=== PATIENT | male | born 1975 | race Caucasian/White ===

== ENCOUNTER 2019-07-23 11:55 | Outpatient (CLI) | payer OTHER ==
--- NOTE | 2019-07-23 13:35 | MRI Report ---
Reason: LESION OF ULNAR NERVE LT AND RT UPPER LIMBS Procedure Date: 07/23/2019 Accession Number: [id number] / [id number] Procedure: MRI - Cervical Spine W/O CPT Code: Final Report FULL RESULT: EXAM: MRI CERVICAL SPINE WITHOUT CONTRAST EXAM DATE: 07/23/2019 01:01 PM. CLINICAL HISTORY: 44-year-old male. LESION OF ULNAR NERVE LT AND RT UPPER LIMBS. COMPARISONS: None. TECHNIQUE: Multiplanar, multisequence T1-weighted and fluid-sensitive sequences of the cervical spine without contrast. Other: None. FINDINGS: Neurologic Structures: The visualized posterior fossa structures are unremarkable. No signal abnormality in the visualized spinal cord. Alignment: No scoliosis or spondylolisthesis. Bone Marrow: No gross fractures or bone lesions. No marrow edema. Interspace Levels/Facets: C1-C2: Unremarkable. C2-C3: Unremarkable. C3-C4: Unremarkable. C4-C5: Unremarkable. C5-C6: Mild diffuse disk bulge. Mild bilateral facet arthropathy. Mild anterior dural compression. No significant central canal narrowing. Mild to moderate right and mild left foraminal narrowing. C6-C7: Mild diffuse disk bulge. No significant central canal or foraminal narrowing. C7-T1: Unremarkable. Musculature: Normal. No edema or fatty atrophy. Other: The paravertebral and prevertebral soft tissues are normal. IMPRESSION: 1. No evidence of acute fracture or traumatic subluxation. No bone marrow edema. No cord signal abnormality. 2. Mild degenerative spondylosis at C5-C6 and C6-C7 levels as detailed above. Mild to moderate right and mild left foraminal narrowing at C5-C6 level. No significant central canal or foraminal narrowing at remaining cervical levels. RADIA
== END 2019-07-23 11:56 | disposition home or self-care (01) ==
LOC: DI 11:55
PROVIDERS: ATTEND Orthopaedic Surgery
DX: M47.812 Spondylosis without myelopathy or radiculopathy, cervical region (principal); M48.02 Spinal stenosis, cervical region; G56.23 Lesion of ulnar nerve, bilateral upper limbs
CPT/HCPCS: 72141

== ENCOUNTER 2019-07-25 10:51 | Emergency (ER) | payer OTHER ==
[2019-07-25 11:30] VITALS: BP 139/91
--- NOTE | 2019-07-25 12:50 | ED Physician Documentation ---
History of Present Illness - Stated complaint Stated Complaint: MED REFILL/NECK PX - Chief complaint Chief Complaint: General - History obtained from History obtained from: Patient - History of Present Illness Timing: Other (He has longstanding neck pain which is worse than normal, had an MRI last week. It is in the center of the neck and has tingling in both hands. The MRI was reviewed and he was given a copy of the read. He had mild to moderate foraminal narrowing at one level and mild foraminal narrowing at the other side at the same level. He also needs a refill of his antidepressant, [place] Review of Systems Constitutional: denies: Fever, Chills Cardiac: denies: Chest pain / pressure, Palpitations Respiratory: denies: Dyspnea, Cough PD PAST MEDICAL HISTORY - Past Medical History Respiratory: None Neuro: Other Endocrine/Autoimmune: None GI: None : None HEENT: None Psych: None Musculoskeletal: None Derm: None Other Past Medical History: PTSD - Past Surgical History Past Surgical History: Yes General: Cholecystectomy, Hiatal hernia repair Ortho: Shoulder arthroplasty, Other - Present Medications Home Medications: Ambulatory Orders Medication Instructions Recorded Confirmed Alfuzosin HCl [Alfuzosin HCl ER] 0 mg DAILY 07/25/19 07/25/19 Cyclobenzaprine [Flexeril] 10 mg PO TID PRN #20 tablet 07/25/19 Hydrocodone/Acetaminophen 1 - 2 each PO Q6H PRN #14 tablet 07/25/19 [Hydrocodon-Acetaminophen 5-325] Pantoprazole [Protonix] 40 mg DAILY 07/25/19 07/25/19 Telmisartan [Micardis] 20 mg DAILY 07/25/19 07/25/19 Venlafaxine ER [Effexor ER] 225 mg DAILY 07/25/19 07/25/19 Venlafaxine HCl [Venlafaxine HCl 225 mg PO DAILY #30 tab.er.24 07/25/19 ER] - Allergies Allergies/Adverse Reactions: Allergies Allergy/AdvReac Type Severity Reaction Status Date / Time No Known Drug Allergies Allergy Verified 07/25/19 11:30 - Social History Does the pt smoke?: No Smoking Status: Never smoker - Immunizations Immunizations are current?: Yes PD ED PE NORMAL - Vitals Vital signs reviewed: Yes - General General: Alert and oriented X 3, No acute distress - Neck Neck: Supple, no meningeal sign, Other (Tender in the mid neck, hurts with rotation especially to the right more than the left.) - Extremities Extremities: Other (Mildly weak balloon tester strength, interosseous strength, and wrist extension on the left compared with the right.) - Neuro Neuro: Alert and oriented X 3, Normal speech Results - Vitals Vitals: Vital Signs - 24 hr 07/25/19 11:25 Temperature 36.7 C Heart Rate 98 Respiratory 18 Rate Blood Pressure 139/91 H O2 Saturation 98 Oxygen O2 Source Room air PD MEDICAL DECISION MAKING - ED course ED course: 44-year-old gentleman presents with symptoms of a cervical radiculopathy despite relatively unremarkable MRI a few days ago. [place] His venlafaxine was also refilled. Departure - Departure Disposition: 01 Home, Self Care Clinical Impression: Neck pain, Medication refill Condition: Good Record reviewed to determine appropriate education?: Yes Instructions: ED Neck Pain No Trauma Prescriptions: Cyclobenzaprine [Flexeril] 10 mg PO TID PRN #20 tablet PRN Reason: Spasms Hydrocodone/Acetaminophen [Hydrocodon-Acetaminophen 5-325] 1 - 2 each PO Q6H PRN #14 tablet PRN Reason: pain Venlafaxine HCl [Venlafaxine HCl ER] 225 mg PO DAILY #30 tab.er.[email or web address] Comments: Follow-up with Dr. Carlos as scheduled for further evaluation and treatment. Return for new or worsening symptoms. Do not drink or drive while taking prescription pain medication or muscle relaxers.
== END 2019-07-25 12:55 | disposition home or self-care (01) ==
LOC: ED 10:51
DX: M54.12 Radiculopathy, cervical region (principal); Z76.0 Encounter for issue of repeat prescription
CPT/HCPCS: 99282; 99283

== ENCOUNTER 2019-09-07 08:58 | Day surgery (SDC) | payer OTHER ==
[2019-09-07] MEDS ORDERED: LACTATED RINGERS 1,000 ML IV ONE ×2 (09:00→10:42)
[2019-09-07] MEDS ORDERED: CEFAZOLIN SODIUM IN 0.9 % NACL 2 GM/100 ML BAG IV ONE (09:26)
--- NOTE | 2019-09-07 09:27 | ANESTHESIA ---
Pre-Anesthesia VS, & Labs - Diagnosis right ulnar nerve compressions - Procedure right ulnar nerve decompressions Vital Signs: Temp Pulse Resp BP Pulse Ox 36.1 C L 89 18 142/91 H 96 09/07/19 09:04 09/07/19 09:04 09/07/19 09:04 09/07/19 09:04 09/07/19 09:04 Height 6 ft 5 in Weight (kg) 115.67 kg Body Mass Index 29.6 Home Medications and Allergies Home Medications: Ambulatory Orders Fluticasone [Flonase] 1 sprays NIKKI DAILY 08/30/19 Tadalafil [Cialis] 5 mg PO 08/30/19 Alfuzosin HCl [Alfuzosin HCl ER] 0 mg DAILY 07/25/19 Pantoprazole [Protonix] 40 mg DAILY 07/25/19 Telmisartan [Micardis] 20 mg DAILY 07/25/19 Venlafaxine ER [Effexor ER] 225 mg DAILY 07/25/19 Fluticasone [Flonase] 1 sprays NIKKI DAILY 08/30/19 Tadalafil [Cialis] 5 mg PO 08/30/19 Allergies/Adverse Reactions: Allergies Allergy/AdvReac Type Severity Reaction Status Date / Time No Known Drug Allergies Allergy Verified 08/30/19 11:52 Anes History & Medical History - Anesthetic History Anesthesia Complications: reports: No previous complications, Other-see comment (reports hsitory of wakefulness during a previous surgery) Family history of Anesthesia Complications: Denies Family history of Malignant Hyperthermia: Denies - Medical History Cardiovascular: reports: Hypertension Pulmonary: reports: Sleep apnea, CPAP use Gastrointestinal: reports: GERD Urinary: reports: Benign prostate hypertrophy Neuro: reports: None, Other Musculoskeletal: reports: Other Endocrine/Autoimmune: reports: None Blood Disorders: reports: None Skin: reports: None Smoking Status: Former smoker (quite a year ago) Psychosocial: reports: No issues indicated, Depression (takes effexor), Anxiety - Surgical History General: Cholecystectomy, Hiatal hernia repair, Other Eyes Ears Nose Throat (EENT): Other Orthopedic: Shoulder arthroplasty Exam General: Alert, Oriented x3, Cooperative, No acute distress Dental: WNL Mouth Openin Fingerbreadth Neck Mobility: Normal Mallampati classification: I Thyromental Distance: 4-6 cm Respiratory: Lungs clear, Normal breath sounds, No respiratory distress, No accessory muscle use Cardiovascular: Regular rate, Normal S1, Normal S2, No murmurs Abdomen: Normal bowel sounds, Soft, No tenderness, No hepatospenomegaly, No masses Extremities: No clubbing, No cyanosis, No edema, Normal pulses, No tenderness/swelling Neurological: Normal gait, Normal speech, Strength at 5/5 X4 ext, Normal tone, Sensation intact, Cranial nerves 3-12 NL, Reflexes 2+ Mental/Cognitive Status: Alert/Oriented X3, Normal for patient Cognitive Status: Within normal limits Plan Anesthesia Type: General Consent for Procedure(s) Verified and Reviewed: Yes Code Status: Attempt Resuscitation ASA classification: 2-Mild systemic disease Is this case an emergency?: No
[2019-09-07] MEDS ORDERED: KETOROLAC 30 MG/ML VIAL IVP ONE (09:37)
[2019-09-07] MEDS ORDERED: fentaNYL 100 MCG/2 ML VIAL IVP ONE (09:37)
[2019-09-07] MEDS ORDERED: LIDOCAINE-MPF 2% 5 ML VIAL IM ONE (09:37)
[2019-09-07] MEDS ORDERED: ACETAMINOPHEN 1,000 MG/100 ML 100 ML IV ONE (09:37)
[2019-09-07] MEDS ORDERED: MIDAZOLAM 2 MG/2 ML VIAL IVP ONE (09:37)
[2019-09-07] MEDS ORDERED: PROPOFOL 200 MG/20 ML VIAL IVP ONE (09:37)
[2019-09-07] MEDS ORDERED: ONDANSETRON 4 MG/2 ML VIAL IVP ONE (09:37)
[2019-09-07] MEDS ORDERED: DEXAMETHASONE 4 MG/ML VIAL IVP ONE (09:37)
[2019-09-07] MEDS ORDERED: BUPIVACAINE 0.25% PF 30 ML VIAL ONE (09:46)
[2019-09-07] MEDS ORDERED: BUPIVACAINE 0.25% PF 30 ML VIAL SUBQ ONE ×2 (10:23)
[2019-09-07] MEDS ORDERED: LIDOCAINE 1%-EPI 1:100000 20 ML MDV ONE (11:55)
[2019-09-07] MEDS ORDERED: LIDOCAINE 1%-EPI 1:100000 20 ML MDV SUBQ ONE (12:12)
[2019-09-07] MEDS ORDERED: oxyCODONE 5 MG TABLET PO PRN (12:47)
[2019-09-07] MEDS ORDERED: ONDANSETRON 4 MG/2 ML VIAL IVP PRN (12:47)
--- NOTE | 2019-09-07 13:03 | OPERATIVE REPORT ---
Operative Report - General Procedure Date: 09/07/19 - Procedure Note Estimated Blood Loss (mL): 25 - Other Other Information/Narrative: Date of Procedure: 07 September 2019 Planned Procedure: Right ulnar nerve in situ decompression, possible transposition Pre-op diagnosis: Right cubital tunnel syndrome Procedure performed: Right ulnar nerve in situ decompression Post-op diagnosis: Right cubital tunnel syndrome Primary Surgeon: JANUARY LAY Secondary Surgeon: Anesthesia: General EBL: 25 ml Tourniquet: 73 minutes, right arm at 250mmHg. Specimen(s) Information: None Complication(s): None Condition: Stable to recovery Indications for Surgery: The patient is a 44-year-old right hand dominant male with a multiple year history of right greater than left elbow pain and numbness and tingling in the ulnar digits. Exam demonstrated no instability/subluxation of the ulnar nerve. They had a positive Tinel and positive flexion compression test. EMG/NCS was consistent with bilateral ulnar neuropathy at the elbow. The patient was counseled on treatment options to include continued nonoperative treatment in the form of activity modification, splinting versus surgical release of the ulnar nerve. We also discussed intraoperative evaluation of the stability of the nerve and the possible need for anterior subcutaneous transposition. Risks of surgery were discussed to include bleeding, infection, postoperative elbow st iffness, failure to relieve symptoms, damage to nerves, vessels, tendons, ligaments, bone and cartilage and anesthesia complications to include medication side effects and allergic reactions and even . After a long discussion, they wished to proceed. Findings: Ulnar nerve with multiple layers of thickened overlying fascia the distal. The proximal extent of the forearm fascia was thickened and extremely restrictive. The ulnar nerve was released in situ, with the dissection carried proximally into the arm and distally into the FCU muscle belly. Following release, the course of the ulnar nerve was inspected both visually and with digital palpation for any points of compression or kinking. The nerve was found to glide appropriately with elbow flexion and extension without any perching or snapping. Descriptions of Procedure: The patient was met in the Preoperative Holding Area, at which time preoperative paperwork was confirmed. The right elbow was signed. The patient was then b rought to Main Operating Room, placed supine on the Operating Room table, at which time pre procedure timeout was conducted to confirm correct patient, correct extremity and correct procedure and also to confirm presence and sterility of all required equipment and to confirm that antibiotics were being administered in the form of 2g of intravenous Ancef. After this was confirmed, general anesthesia was induced. The operative extremity was then prepped and draped over a hand table in the normal sterile fashion. A sterile well-padded tourniquet was placed on the proximal arm. A final timeout was conducted to confirm the correct patient, correct extremity and correct procedure and to confirm that antibiotics had been administered within 30 minutes of incision time. The operative extremity was then exsanguinated with an Esmarch bandage and tourniquet inflated to 250mmHg. An approximately 6 cm longitudinal incision was made centered posterior to the tip of the medial epicondyle in line with the course of the ulnar nerve. The skin and dermis were sharply incised, followed by blunt dissection with tenotomy scissors through through through the subcutaneous fat. Care was taken to identify any crossing branches of the medial cutaneous nerves. Three of these branches were identified they were dissected free and protected with vessel loops. The incision was carried deep, and Morales's ligament overlying the cubital tunnel was sharply incised, near the insertion on the olecranon revealing the ulnar nerve. The cubital tunnel was then released, and the dissection proceeded proximally and distally. Dissection was taken distally into the forearm and the muscle bellies of the FCU. Approximately 3 cm of the overlying FCU fascia was released. Following release of the FCU fascia, digital palpation confirmed no compressive points or excessive pressure on the ulnar nerve well into the FCU muscle belly. Proximally, and [place] retractor was used to improve visualization, and the proximal extent of the nerve was released from the overlying connective tissue under direct visualization. A [place] was passed confirming no tethering points proximally. The instruments were removed from the incision, the Vesseloops were removed, and the arm was taken through full range of flexion and extension. The ulnar nerve had good gliding and excursion, without any perching or snapping at the medial epicondyle. The wound was then irrigated, and the tourniquet was let down. Manual pressure was held for 5 minutes, after which point bipolar bipolar cautery was used to coagulate any bleeding points. The wound was again irrigated and the subcutaneous tissue was closed using 2-0 and 3-0 Vicryl in interrupted fashion, followed by a running subcuticular 4-0 Monocryl. Mastisol and Steri-Strips were placed, and the jose-incisional tissues were injected with 50 mL of local anesthetic consisting of a mixture of 30 mL of quarter percent Marcaine plain and 20 mL of 1% lidocaine with epinephrine. The wound was dressed with Xeroform, plain 4x4 gauze, followed by webril, pound cotton, and a compressive Miguel wrap for a soft Gaines type splint. The patient was then awakened from general anesthesia without complication, brought to the Post Anesthesia Care for further recovery. Post-operative the patient was able to abduct his fingers agains rersistance Postoperative Plan: 1. The patient will be discharged from the Same Day Surgery Unit when discharge criteria are met. 2. The patient will remain in a compressive soft dressing until follow-up, this will be removed in clinic. 3. Patient can start gentle elbow range of motion on postoperative day 1-2 as his pain allows, to facilitate nerve gliding. 4. Expect return to full duty in 12 weeks.
[2019-09-07] MEDS ORDERED: oxyCODONE 5 MG TABLET ONE (13:19)
[2019-09-07 13:22] VITALS: BP 139/89
== END 2019-09-07 08:59 | disposition home or self-care (01) ==
LOC: SDS 08:58
PROVIDERS: ATTEND Orthopaedic Surgery
PROC: 01N40ZZ Release Ulnar Nerve, Open Approach (ICD-10-PCS; principal; 2019-09-07 10:00)
DX: G56.21 Lesion of ulnar nerve, right upper limb (principal); I10 Essential (primary) hypertension; G47.33 Obstructive sleep apnea (adult) (pediatric); Z87.891 Personal history of nicotine dependence; F32.9 Major depressive disorder, single episode, unspecified; F41.9 Anxiety disorder, unspecified

== ENCOUNTER 2020-01-04 07:26 | Day surgery (SDC) | payer OTHER ==
[~2020-01-04 07:26] MED LIST: CEFAZOLIN SODIUM IN 0.9 % NACL 2 GM/100 ML BAG IV ONE
[2020-01-04] MEDS ORDERED: LACTATED RINGERS 1,000 ML IV ONE ×2 (07:36→11:31)
[2020-01-04] MEDS ORDERED: LIDOCAINE-MPF 1% 30 ML VIAL ONE (07:50)
[2020-01-04] MEDS ORDERED: BUPIVACAINE 0.25% PF 30 ML VIAL ONE (07:50)
[2020-01-04] MEDS ORDERED: MIDAZOLAM 2 MG/2 ML VIAL IVP ONE (08:05)
--- NOTE | 2020-01-04 08:07 | ANESTHESIA ---
Pre-Anesthesia VS, & Labs - Diagnosis left cubital tunnel syndrome - Procedure left cubital tunnel release Vital Signs: Temp Pulse Resp BP Pulse Ox 36.9 C 77 12 168/86 H 97 01/04/20 07:36 01/04/20 07:36 01/04/20 07:36 01/04/20 07:36 01/04/20 07:36 Height 6 ft 5 in Weight (kg) 120.6 kg Body Mass Index 29.6 - NPO >8 hours - Lab Results Lab results reviewed: Yes Home Medications and Allergies Alfuzosin HCl [Alfuzosin HCl ER] 0 mg DAILY 07/25/19 Pantoprazole [Protonix] 40 mg DAILY 07/25/19 Telmisartan [Micardis] 20 mg DAILY 07/25/19 Fluticasone [Flonase] 1 sprays NIKKI DAILY 08/30/19 Tadalafil [Cialis] 5 mg PO 08/30/19 Allergies/Adverse Reactions: Allergies Allergy/AdvReac Type Severity Reaction Status Date / Time No Known Drug Allergies Allergy Verified 12/31/19 10:29 Anes History & Medical History - Anesthetic History Anesthesia Complications: reports: No previous complications Family history of Anesthesia Complications: Denies Family history of Malignant Hyperthermia: Denies - Medical History Cardiovascular: reports: Hypertension Pulmonary: reports: Sleep apnea, CPAP use Gastrointestinal: reports: GERD Urinary: reports: Benign prostate hypertrophy Neuro: reports: None, Other Musculoskeletal: reports: Other Endocrine/Autoimmune: reports: None, Other (obesity) Blood Disorders: reports: None Skin: reports: None Smoking Status: Former smoker (quite a year ago) Psychosocial: reports: Anxiety - Surgical History General: Cholecystectomy, Other Eyes Ears Nose Throat (EENT): Other Orthopedic: Shoulder arthroplasty, Other Exam General: Alert, Oriented x3, Cooperative Dental: WNL Mouth Opening: Greater than 4 Fingerbreadths Neck Mobility: Normal Mallampati classification: I Thyromental Distance: 4-6 cm Respiratory: Lungs clear Cardiovascular: Regular rate Plan Anesthesia Type: General Consent for Procedure(s) Verified and Reviewed: Yes Code Status: Attempt Resuscitation ASA classification: 2-Mild systemic disease Is this case an emergency?: No
[2020-01-04] MEDS ORDERED: BUPIVACAINE 0.25% PF 30 ML VIAL SUBQ ONE (09:41)
[2020-01-04] MEDS ORDERED: ONDANSETRON 4 MG/2 ML VIAL IVP PRN (11:29)
[2020-01-04] MEDS ORDERED: oxyCODONE 5 MG TABLET PO PRN (11:29)
[2020-01-04] MEDS ORDERED: oxyCODONE 5 MG TABLET ONE (11:55)
[2020-01-04 12:03] VITALS: BP 144/95
--- NOTE | 2020-01-09 09:37 | OPERATIVE REPORT ---
Operative Report - General Procedure Date: 01/04/20 - Procedure Note Anesthesia Technique: General LMA Pathology: None Estimated Blood Loss (mL): 60 - Other Other Information/Narrative: Planned Procedure: Left ulnar nerve in situ decompression, possible transposition Pre-op diagnosis: Left cubital tunnel syndrome Procedure performed:Left ulnar nerve in situ decompression Post-op diagnosis: Left cubital tunnel syndrome Primary Surgeon: JANUARY LAY Secondary Surgeon: Jay Anesthesia: General EBL: 60 ml Tourniquet: 70 minutes, left arm at 250mmHg. Specimen(s) Information: None Complication(s): None Condition: Stable to recovery Indications for Surgery: The patient is a 44-year-old right hand dominant male with a multiple year history of bilateral elbow pain and numbness and tingling in the ulnar digits. He underwent an in situ decompression of the right cubital tunnel in late Aug 2019, with good improvement in symptoms and desired to pursue treatment on the left. He had recently noticed hypothenar and 1st dorsal interoseous muscle wasting on the left with decreased animal herder strength. Exam demonstrated no instability/subluxation of the ulnar nerve. They had a positive Tinel and positive flexion compression test. Prior EMG/NCS was consistent with bilateral ulnar neuropathy at the elbow. The patient was counseled on treatment options to include continued nonoperative treatment in the form of activity modification, splinting versus surgical release of the ulnar nerve. We also discussed intraoperative evaluation of the stability of the nerve and the possible need for anterior subcutaneous transposition. Risks of surgery were discussed to include bleeding, infection, postoperative elbow stiffness, failure to relieve symptoms, damage to nerves, vessels, tendons, ligaments, bone and cartilage and anesthesia complications to include medication side effects and allergic reactions and even . After discussion, they wished to proceed. Findings: Ulnar nerve with multiple layers of thickened overlying fascia just proximal to the medial epicondyle. The ulnar nerve was enlarged and enveloped in multiple layers of dense connective tissue. Similar to the right arm (although not as tight, the proximal extent of the forearm fascia was thickened and restrictive. The ulnar nerve was released in situ, with the dissection carried proximally into the arm (a small proximal counter-incision was made to release a dense struthers band) and distally into the FCU muscle belly for approximately 3 cm. Following release, the course of the ulnar nerve was inspected both visually and with digital palpation for any points of compression or kinking. The nerve was found to glide appropriately with elbow flexion and extension without any perching or snapping. Descriptions of Procedure: The patient was met in the Preoperative Holding Area, at which time preoperative paperwork was confirmed. The left elbow was signed. The patient was then brought to Main Operating Room, placed supine on the Operating Room table and general anesthesia was induced. The operative extremity was then prepped and draped over a hand table in the normal sterile fashion. A sterile well-padded tourniquet was placed on the proximal arm. A surgical timeout was conducted to confirm the correct patient, correct extremity and correct procedure and to confirm that antibiotics had been administered within 30 minutes of incision time. The operative extremity was then exsanguinated with an Esmarch bandage and tourniquet inflated to 250mmHg. An approximately 8 cm longitudinal incision was made centered posterior to the tip of the medial epicondyle in line with the course of the ulnar nerve. The skin and dermis were sharply incised, followed by blunt dissection with tenotomy scissors through through through the subcutaneous fat to the level of the fascia. Care was taken to identify any crossing branches of the medial cutaneous nerves. Two branches were identified crossing the in cision and were dissected free and protected with vessel loops. Small crossing vessels were coagulated with bipolar electrocautery. The incision was carried deep, and Morales's ligament overlying the cubital tunnel was sharply incised, near the insertion on the olecranon revealing the ulnar nerve. The cubital tunnel was then released, and the dissection proceeded proximally and distally. Adherent tissue constricting the nerve was carefully released, with immediate rebound of the size of the nerve. Dissection was taken distally into the forearm and the muscle bellies of the FCU. Approximately 3 cm of the overlying FCU fascia was released. Following release of the FCU fascia, digital palpation confirmed no compressive points or excessive pressure on the ulnar nerve well into the FCU muscle belly. Proximally, an [employer] retractor was used to improve visualization, and the proximal extent of the nerve was released from the overlying connective tissue under direct visualization. A [place] was passed, and a tight fascial band, consistent with a struthers band was encountered approximately 8-9cm proximal to the medial epicondyle. A small 1.5 cm counterincision was made, and the fascial layer was dissected to bluntly, and the fascial band was released under direct visualization. Following this, digital palpation was used to confirm that there were no additional tight or tethering points proximally. The instruments were removed from the incision, the Vesseloops were removed, and the arm was taken through full range of flexion and extension. The ulnar nerve had good gliding and excursion, without any perching or snapping at the medial epicondyle. The wound was then irrigated, and the tourniquet was let down. Manual pressure was held for 5 minutes, after which point bipolar bipolar cautery was used to coagulate any bleeding points. The wound was again irrigated and the subcutaneous tissue was closed using 2-0 Vicryl in interrupted fashion, followed by a running subcuticular 4-0 Monocryl. Mastisol and Steri-Strips were placed, and the periincisional tissues were injected with 30 mL of quarter percent Marcaine plain. The wound was dressed with Xeroform, plain 4x4 gauze, followed by webril, pound cotton, a gently compressive webril and an Miguel wrap for a soft Gaines type splint. The patient was then awakened from general anesthesia without complication, brought to the Post Anesthesia Care for further recovery. Post- operatively the patient was able to abduct his fingers against resistance, and could cross the long and index fingers. Postoperative Plan: 1. The patient will be discharged from the Same Day Surgery Unit when discharge criteria are met. 2. The patient will remain in a compressive soft dressing until follow-up, this will be removed in clinic next week and will be replaced with a compressive arm sleeve. 3. Patient can start gentle elbow range of motion on postoperative day 1-2 as his pain allows, to facilitate nerve gliding. 4. Expect return to full duty in 12 weeks. 5. Early ambulation for DVT prophylaxis
== END 2020-01-04 07:27 | disposition home or self-care (01) ==
LOC: SDS 07:26
PROVIDERS: ATTEND Orthopaedic Surgery
DX: G56.22 Lesion of ulnar nerve, left upper limb (principal); I10 Essential (primary) hypertension; G47.33 Obstructive sleep apnea (adult) (pediatric); Z87.891 Personal history of nicotine dependence

== ENCOUNTER 2020-05-07 12:21 | Outpatient (CLI) | payer OTHER ==
[2020-05-07] MEDS ORDERED: BUFFERED LIDOCAINE 10 ML SYRINGE ONE ×2 (12:34)
[2020-05-07] MEDS ORDERED: GADOBUTROL 7.5 MMOL/7.5 ML VIAL ONE (12:35)
[2020-05-07] MEDS: BUFFERED LIDOCAINE 10 ML SYRINGE IU ONE (13:42)
[2020-05-07] MEDS: iohexoL-240 10 ML VIAL IVP ONE (13:44)
[2020-05-07] MEDS: GADOBUTROL 7.5 MMOL/7.5 ML VIAL IVP ONE (13:45)
--- NOTE | 2020-05-07 14:22 | XRAY Report ---
PROCEDURE: Arthrogram Needle Placement INDICATIONS: RT SHOULDER PAIN TECHNIQUE: Utilizing sterile technique and fluoroscopic guidance a 22-gauge 1 1/2 inch needle was adv anced during injection of local anesthesia into the anterior shoulder joint space. Through this pathw ay positioning of the needle tip was confirmed to be within the articular interspace, and positioning was confirmed by injection of a small amount of nonionic iodinated contrast. Thereafter a dilute rip olinium/saline solution was felt for MR arthrography. COMPARISON: None. FINDINGS: Successful intra-articular injection of a dilute gadolinium/saline solution. IMPRESSION: Intra-articular contrast infusion for MR arthrography. Reviewed by: Ronald Palencia MD on 05/07/2020 2:20 PM PDT Approved by: Ronald Palencia MD on 05/07/2020 2:20 PM PDT Station ID: [id number]
--- NOTE | 2020-05-07 16:25 | MRI Report ---
PROCEDURE: Arthrogram Shoulder RT INDICATIONS: RT SHOULDER PAIN CONTRAST: Dilute intra-articular gadolinium contrast solution TECHNIQUE: After the administration of 12 mL of dilute intra-articular Gadolinium contrast, oblique coronal T1 a nd T2 spin echo with fat saturation, oblique sagittal T1 spin echo with and without fat saturation, o blique sagittal T2 fast spin echo with fat saturation, axial T1 spin echo with fat saturation through the shoulder. COMPARISON: Fluoroscopic images from arthrogram injection performed earlier the same day. FINDINGS: Image quality: Diagnostic. Rotator cuff: There is mild supraspinatus tendinosis. Infraspinatus and teres minor tendons are inta ct. The subscapularis tendon demonstrates mild tendinosis. Bones and bursae: No acute bone marrow contusions or fractures. Chronic traction cystic changes are seen at the posterosuperior humeral head. Mild degenerative changes are seen at the acromioclavic ular joint. No pathologic subacromial/subdeltoid bursal fluid is present. Capsule and soft tissues: A lobulated cyst is seen at the anterosuperior aspect of the labrum measur ing approximately 2.5 x 2.0 x 2.1 cm that does not fill with intra-articular contrast material and mo st likely represents a paralabral cyst. There is a nondisplaced tear of the superior labrum extending into the anterosuperior labrum. Mild degeneration is seen in the inferior labrum. The long head of the biceps tendon demonstrates normal location and morphology. The inferior glenohumeral ligament is normal in thickness. IMPRESSION: 1. Nondisplaced tearing of the superior to anterosuperior labrum with a 2.5 cm paralabral cyst exten ding into the superior subscapularis recess, which does not fill with intra-articular contrast materi al. 2. Mild supraspinatus and subscapularis tendinosis. No significant rotator cuff tendon tear is seen. 3. Mild acromioclavicular joint osteoarthrosis. Reviewed by: Darci Zazueta MD on 05/07/2020 4:23 PM PDT Approved by: Darci Zazueta MD on 05/07/2020 4:23 PM PDT Station ID: [id number]
== END 2020-05-07 12:22 | disposition home or self-care (01) ==
LOC: DI 12:21
PROVIDERS: ATTEND General Practice
DX: M25.811 Other specified joint disorders, right shoulder (principal); S43.431A Superior glenoid labrum lesion of right shoulder, initial encounter; M75.91 Shoulder lesion, unspecified, right shoulder; M19.011 Primary osteoarthritis, right shoulder
CPT/HCPCS: 23350; 73222; 77002; A9585; Q9966

== ENCOUNTER 2020-08-01 08:38 | Day surgery (SDC) | payer OTHER ==
--- NOTE | 2020-08-01 08:31 | ANESTHESIA ---
Pre-Anesthesia VS, & Labs Height: 6 ft 5 in Weight (kg): 115 kg Body Mass Index: 30.0 BMI Classification: Obese <Katarzyna Sharp - Last Filed: 08/01/20 08:27> - NPO >8 hours - Lab Results Lab results reviewed: Yes <Mayito Canseco - Last Filed: 08/01/20 09:39> - Diagnosis right shoulder impingement, labral tear (Katarzyna Sharp) - Procedure right shoulder arthroscopy (Katarzyna Sharp) Vital Signs: Temp Pulse Resp BP Pulse Ox 36.7 C 80 14 141/87 H 96 08/01/20 08:44 08/01/20 08:44 08/01/20 08:44 08/01/20 08:44 08/01/20 08:44 Home Medications and Allergies <Katarzyna Sharp - Last Filed: 08/01/20 08:27> <Mayito Canseco - Last Filed: 08/01/20 09:39> Alfuzosin HCl [Alfuzosin HCl ER] 0 mg PO DAILY 07/25/19 Pantoprazole [Protonix] 40 mg DAILY 07/25/19 Telmisartan [Micardis] 20 mg PO DAILY 07/25/19 Fluticasone [Flonase] 1 sprays NIKKI DAILY 08/30/19 Tadalafil [Cialis] 5 mg PO DAILY 08/30/19 Allergies/Adverse Reactions: Allergies Allergy/AdvReac Type Severity Reaction Status Date / Time No Known Drug Allergies Allergy Verified 07/29/20 09:26 Anes History & Medical History - Medical History Cardiovascular: reports: Hypertension Pulmonary: reports: Sleep apnea, CPAP use Gastrointestinal: reports: GERD Urinary: reports: Benign prostate hypertrophy Neuro: reports: None, Other Musculoskeletal: reports: Other Endocrine/Autoimmune: reports: None Blood Disorders: reports: None Skin: reports: None Smoking Status: Former smoker (quite a year ago) - Surgical History General: Cholecystectomy Eyes Ears Nose Throat (EENT): Other Orthopedic: Shoulder arthroplasty <Katarzyna Sharp - Last Filed: 08/01/20 08:27> - Anesthetic History Anesthesia Complications: reports: No previous complications Family history of Anesthesia Complications: Denies Family history of Malignant Hyperthermia: Denies - Medical History Cardiovascular: reports: Hypertension Pulmonary: reports: Sleep apnea, CPAP use Gastrointestinal: reports: GERD Urinary: reports: Benign prostate hypertrophy Neuro: reports: None Endocrine/Autoimmune: reports: None Smoking Status: Former smoker <Mayito Canseco Last Filed: 08/01/20 09:39> Exam General: Alert, Oriented x3, Cooperative, No acute distress Dental: WNL Mouth Openin Fingerbreadth Neck Mobility: Normal Mallampati classification: II Respiratory: Lungs clear, Normal breath sounds, No respiratory distress, No accessory muscle use Cardiovascular: Regular rate, Normal S1, Normal S2, No murmurs <Mayito Canseco Filed: 08/01/20 09:39> Plan Anesthesia Type: General, Interscalene Block Regional Block: Per Surgeon's request for Post Op pain control Consent for Procedure(s) Verified and Reviewed: Yes Code Status: Attempt Resuscitation ASA classification: 2-Mild systemic disease Is this case an emergency?: No <Mayito Canseco Filed: 08/01/20 09:39>
[~2020-08-01 08:38] MED LIST changes: +BUPIVACAINE 0.25% PF 30 ML VIAL ONE; -CEFAZOLIN SODIUM IN 0.9 % NACL 2 GM/100 ML BAG IV ONE; +DEXAMETHASONE 4 MG/ML VIAL ONE; +KETOROLAC 30 MG/ML VIAL ONE; +LIDOCAINE-MPF 2% 5 ML VIAL ONE; +ONDANSETRON 4 MG/2 ML VIAL ONE; +PROPOFOL 200 MG/20 ML VIAL IVP ONE; +ROCURONIUM 50 MG/5 ML VIAL ONE; +ROPIVACAINE 0.5% PF 20 ML AMPULE ONE; +cefTRIAXone 2 GM VIAL ONE
[2020-08-01] MEDS ORDERED: LACTATED RINGERS 1,000 ML IV ONE ×2 (09:09→13:53)
[2020-08-01] MEDS ORDERED: MIDAZOLAM 2 MG/2 ML VIAL ONE (09:11)
[2020-08-01] MEDS ORDERED: fentaNYL 100 MCG/2 ML VIAL ONE ×2 (09:11→09:12)
[2020-08-01] MEDS ORDERED: LIDOCAINE-PF 2% 10 ML AMP SUBQ ONE (09:14)
[2020-08-01] MEDS ORDERED: EPINEPHrine 1 MG/ML AMP ONE (09:28)
[2020-08-01] MEDS ORDERED: BUPIVACAINE 0.25% PF 30 ML VIAL ONE (09:29)
[2020-08-01] MEDS ORDERED: NALOXONE 0.4 MG/ML VIAL IVP PRN (09:39)
[2020-08-01] MEDS ORDERED: MORPHINE 2 MG/ML CARPUJECT IVP PRN (09:39)
[2020-08-01] MEDS ORDERED: ONDANSETRON 4 MG/2 ML VIAL IVP PRN ×2 (09:39→13:49)
[2020-08-01] MEDS ORDERED: ATROPINE ABBOJECT 1 MG/10 ML SYRINGE IVP PRN (09:39)
[2020-08-01] MEDS ORDERED: ePHEDrine 50 MG/ML VIAL IVP PRN (09:39)
[2020-08-01] MEDS ORDERED: fentaNYL 100 MCG/2 ML VIAL IVP PRN (09:39)
[2020-08-01] MEDS ORDERED: METOCLOPRAMIDE 10 MG/2 ML VIAL IVP PRN (09:39)
[2020-08-01] MEDS ORDERED: LACTATED RINGERS 1,000 ML IV SCH (10:00)
[2020-08-01] MEDS ORDERED: BUPIVACAINE 0.25% PF 30 ML VIAL SUBQ ONE ×2 (11:13)
[2020-08-01] MEDS ORDERED: EPINEPHrine 1 MG/ML AMP IR ONE (11:14)
[2020-08-01] MEDS ORDERED: SEVOFLURANE 250 ML LIQUID INH ONE (12:48)
[2020-08-01] MEDS ORDERED: oxyCODONE 5 MG TABLET PO PRN (13:49)
[2020-08-01] MEDS ORDERED: LABETALOL 20 MG/4 ML SYRINGE IVP PRN (13:59)
[2020-08-01] MEDS: LABETALOL 20 MG/4 ML SYRINGE IVP PRN ×3 (14:00→14:45)
[2020-08-01] MEDS ORDERED: LABETALOL 20 MG/4 ML SYRINGE IVP ONE (14:05)
--- NOTE | 2020-08-01 14:22 | OPERATIVE REPORT ---
Operative Report - General Procedure Date: 08/01/20 - Procedure Note Anesthesia Technique: General ET tube, Regional block Estimated Blood Loss (mL): 20 - Other Other Information/Narrative: Date of Procedure: 01 August 2020 Planned Procedure: Right shoulder arthroscopy, labral repair, biceps tenodesis, subacromial decompression Pre-op diagnosis: Right shoulder instability, SLAP tear, impingement, anterior paralabral cyst Procedure performed: Right shoulder arthroscopy, posterior inferior labral repair and capsulorrhaphy, SLAP debridement, paralabral cyst decompression, subacromial decompression, mini-open sub pectoral biceps tenodesis Post-op diagnosis: Right shoulder posterior inferior labral tear, SLAP tear, subacromial bursitis, anterior paralabral cyst Primary Surgeon: JANUARY LAY Secondary Surgeon: Jay Anesthesia: General endotracheal anesthesia with regional block EBL: 20 ml IMPLANTS: Arthrex 3 mm knotless suture tack x3 for the labral repair Arthrex 1.8 mm fiber tack x1 for the biceps tenodesis POSTOPERATIVE PLAN: 0-2 weeks-Sling at all times. Pendulum exercises 5 times per day. 2-6 weeks-Passive range of motion with the following limits: FF to 120, ER to 40, abduction to 90 6-12 weeks-Active range of motion in all planes without limitation. Isometric rotator cuff strengthening is allowed. Okay to start light band work with the biceps at 6 weeks and formal strengthening at 8 weeks. 12-16 weeks-Gradually increase strengthening 16 weeks and beyond-Introduce dynamic activities EXAMINATION UNDER ANESTHESIA: ROM: Forward flexion 180 degrees, abduction 175 degrees, ABER 90 degrees, ABIR 90 degrees Anterior load and shift: Normal Posterior load and shift: 2+ Inferior sulcus: Negative ARTHROSCOPIC FINDINGS: Rotator interval: Mild rotator interval fraying Biceps tendon & SLAP: The biceps tendon overall appeared normal, there was a large unstable type II SLAP tear, with instability of the biceps insertion and superior labrum. This was treated with biceps tenodesis and labral debridement. Subscapularis: Intact. There was a large paralabral cyst in the subscapular recess. This was approached and punctured with a spinal needle, and then decompressed by inserting a Raven and dilating the orifice created with release of yellow appearing cystic fluid Rotator Cuff: Intact, no undersurface fraying, superior surface stable to probing following subacromial decompression HAGL: No HAG L or reverse HAG L appreciated Labrum: Large type II SLAP tear superiorly, with an anterior sublabral foramen, the anterior-inferior labrum was stable to probing, the posterior inferior labrum had at the chondral labral junction from approximately 6:00 to 9:00. The posterior superior labrum was intact from approximately 9:00 to 10:30. Glenoid Cartilage: There was a small posterior inferior section of glenoid cartilage that was cracked and unstable. This was debrided with the arthroscopic sucker shaver as part of the labral and glenoid prep. 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 Nonoperative managment failed to resolve symptoms. The risks, benefits, and alternatives were discussed. Risks included pain, bleeding, infection, damage to nearby structures, lack of symptom relief, implant complications, stiffness, need for further surgeries, DVT, PE, stroke, and even . He signed a written consent form. PROCEDURE IN DETAIL: The patient was met in the preoperative holding on the day of the procedure. Operative extremity was signed. Consent was verified. He desired to proceed. Regional anesthesia was obtained in the preoperative area. They were brought to the operating room and surrendered to anesthesia. Once general anesthesia was obtained they were placed in the lateral decubitus position with the operative side up. An axillary roll was placed and all bony prominences were well-padded. They were then prepped and draped in the standard sterile fashion. A surgical timeout was held to confirm the patient procedure, identity, procedure, laterality, allergies, images, and antibiotics. All were in agreement we proceeded. Balanced suspension was applied and a standard diagnostic arthroscopy was performed utilizing posterior and anterior superior portal sites. The anterior superior portal site was created under direct visualization. The findings of the diagnostic arthroscopy can be found above. A biceps tenotomy was performed, and the superior labrum and associated para labral tissues were debrided with a combination of the arthroscopic sucker shaver, meniscal biters and radiofrequency ablation wand. An anterior mid glenoid portal just above the subscapularis was established under direct visualization. The camera was then shifted to the anterior superior portal and the posterior labrum was visualized. Probing demonstrated the posterior inferior labral tear as described above. The posterior inferior labrum was prepared using a combination of high and low angled elevators, the arthroscopic sucker shaver and the pineapple rasp. The extent of the labral tear was from approximately 6:00 inferiorly to just before 9:00 posteriorly. The labrum was systematically freed up until it had good mobility. The arthroscopic sucker shaver was used to debride the cracked chondral margin to make room for anchor placement. The pineapple rasp was used to debride any remaining soft tissue off the glenoid neck. A posterior percutaneous portal was established using the Arthrex system, and anchors were sequentially placed from approximately 6:00 inferior and then moving posteriorly and superiorly. The first anchor was placed, and the appropriate suture lasso was used to pass the suture around the capsule and labral tissue. The anchor was then secured in knotless fashion. This was repeated using the percutaneous portal for the 6:00 anchor. These anchors resulted in a gentle capsulorrhaphy and good repair of the posterior inferior labral tear. The camera was then moved to the mid glenoid portal and the subscapular recess was interrogated. A paralabral cyst was identified, and the spinal needle from the percutaneous kit was brought through the anterior superior portal into the cyst, with release of yellowish colored fluid, creating an orifice. The spinal needle was then removed and a Raven grasper was placed through the portal and used to enter the cyst once in the cyst the jaws were opened and the orifice was dilated resulting in release of copious yellow cystic fluid into the joint, adequately decompressing the cyst. Lateral suspension was released on the shoulder, and final intra-articular arthroscopic pictures were taken with good centering of the humeral head on the glenoid. The instruments and cannula were then removed from the glenohumeral joint. The scope trocar was placed in the posterior portal and the acromion was felt. It was then inserted just under the acromion scraping along the bone until the CA ligament was felt. The scope trocar was then brought just lateral to the CA ligament and out the anterior superior incision. The cannula was then brought over the scope trocar arthroscope were inserted. The arthroscope was backed up until the shaver and arthroscope in the subacromial space. I then systemically debrided the bursa using a sucker shaver and radiofrequency ablation wand. Care was taken to keep the deltoid fascia intact. The rotator cuff was then evaluated, there was no tear. Final images were taken. We then turned our attention to the biceps tenodesis, a 5 cm incision was made near the axillary fold centered over the pectoralis major tendon. Electrocautery was used to obtain hemostasis. The fascia was opened with dissection scissors. Blunt digital dissection was used to identify the intertubercular groove just under the pectoralis major tendon. The long head of the biceps tendon was palpated within this interval, finger dissected and then delivered out of the wound. A salter elevator was used to debride any soft tissue from the intertubercular groove, and then a fiber tack anchor was placed in standard fashion. After ensuring good sliding of the suture, the biceps tendon was then whipstitched using a single limb of the of the anchor suture from 2 cm proximal to the musculotendinous junction down to the musculotendinous junction and back up to the starting point. The free limb from the anchor was then passed from deep to superficial through the tendon. Excess tendon was cut off. Tension was pulled on the post suture, reducing the tendon nicely into the wound and to the surface of the humerus. Tension was maintained on the post, and the tendon was palpated while the elbow was taken through range of motion to ensure appropriate tension. Satisfied with the tension, the sutures were tied using reversing half hitches on and an alternating post. Following fixation there was appropriate tension on the biceps tendon. The suture limbs were cut and the wound was irrigated. The subcutaneous tissue was closed using interrupted 2-0 Vicryl followed by running 3-0 Monocryl in subcuticular fashion. The portal sites were then closed with 3-0 Monocryl. Mastisol and Steri-Strips were applied. 10 mL of quarter percent Marcaine was injected around the biceps tenodesis incision. Xeroform was applied followed by a sterile dressing and a sling. He was awakened and transferred to the recovery room.
[2020-08-01] MEDS: HYDROmorphone 0.5 MG/0.5 ML SYRINGE IVP PRN ×2 (14:26→14:31)
[2020-08-01] MEDS ORDERED: HYDROmorphone 1 MG/ML CARPUJECT ONE (14:35)
[2020-08-01] MEDS ORDERED: oxyCODONE 5 MG TABLET ONE (15:26)
[2020-08-01 15:29] VITALS: BP 134/80
--- NOTE | 2020-08-01 16:59 | ANESTHESIA POST OP EVALUATION ---
Anesthesia Post Eval - Post Anesthesia Eval Vitals: Last Vital Signs Temp 36.4 C L 08/01/20 15:26 Pulse 80 08/01/20 15:26 Resp 12 08/01/20 15:26 BP 134/80 H 08/01/20 15:26 Pulse Ox 95 08/01/20 15:26 CV Function Including HR & BP: positive: Stable Pain Control: positive: Satisfactory Nausea & Vomiting: positive: Negative Mental Status: positive: Patient Participates Respiratory Status: Airway Patent Hydration Status: Satisfactory
== END 2020-08-01 08:39 | disposition home or self-care (01) ==
LOC: SDS 08:38
PROVIDERS: ATTEND Orthopaedic Surgery
PROC: 0RBJ4ZZ Excision of Right Shoulder Joint, Percutaneous Endoscopic Approach (ICD-10-PCS; 2020-08-01)
PROC: 0LS30ZZ Reposition Right Upper Arm Tendon, Open Approach (ICD-10-PCS; 2020-08-01)
PROC: 0RQJ4ZZ Repair Right Shoulder Joint, Percutaneous Endoscopic Approach (ICD-10-PCS; principal; 2020-08-01 09:45)
DX: S43.491A Other sprain of right shoulder joint, initial encounter (principal); S46.111A Strain of muscle, fascia and tendon of long head of biceps, right arm, initial encounter; S43.431A Superior glenoid labrum lesion of right shoulder, initial encounter; M75.51 Bursitis of right shoulder; M25.811 Other specified joint disorders, right shoulder; G47.30 Sleep apnea, unspecified; K21.9 Gastro-esophageal reflux disease without esophagitis; E66.9 Obesity, unspecified; Z68.30 Body mass index [BMI] 30.0-30.9, adult; Z87.891 Personal history of nicotine dependence; X50.0XXA Overexertion from strenuous movement or load, initial encounter; X50.1XXA Overexertion from prolonged static or awkward postures, initial encounter; Y93.B3 Activity, free weights; Y92.814 Boat as the place of occurrence of the external cause; Y99.1 Military activity
CPT/HCPCS: 23430; 29806; A9270; C1713; J1170; J3490; J7120